=== PATIENT | male | born 1970 | race Two or more races ===

== ENCOUNTER 2020-06-19 10:49 | Inpatient (IN) | payer OTHER ==
[~2020-06-19] VITALS: Ht 121.9 cm; Wt 5.0 kg
--- NOTE | 2020-06-19 10:57 | NUR ---
SE RECIBE PACIENTE MASCULINO DE 50 ANOS [address] EDAD CON QUEJA PRINCIPAL DE HEMOGLOBINA BAJA. REFIERE HABERSE HECHO UNOS LABORATORIOS HOY Y QUE SALIO CON RESULTADO DE HEMOGLOBINA EN 5.7. SE LE GET SIGNOS VITALES Y SE UBICA EN AREA INDICADA.
[2020-06-19] MEDS ORDERED: CLARITHROMYCIN500 M1 (11:01)
[2020-06-19] MEDS ORDERED: AMOX1TAB5 (11:01)
[2020-06-19] MEDS ORDERED: DUTOPROL 25-121 EACH (11:02)
--- NOTE | 2020-06-19 11:23 | NUR ---
SE PRENSENTA PACIENTE A DRA. CEBALLOS.
--- NOTE | 2020-06-19 12:45 | NUR ---
PACIENTE ALERTA Y ORIENTADO EN LUANN CHLOE ESFERAS, ES ORIENTADO SOBRE ORDENES MEDICAS, REFIERE ENTENDER. SE COLECTAN MUESTRAS DE CHON, SE CANALIZA VENA Y SE ADMINISTRA MINDY ORDENADO. SE REQUISAN 3 UNIDADES DE PRBC EN HOLD.
--- NOTE | 2020-06-19 13:20 | NUR ---
SE REQUISAN 3 UNIDADES DE PRBC PARA TRANSFUNDIR EN BANCO DE CHON DE APCH.
== END 2020-06-22 17:42 | disposition home or self-care (01) | DRG 811 ==
LOC: ER 10:49 → SEC-K 18:18 → MEDJ 18:18
PROVIDERS: ADMIT Internal Medicine; ATTEND Internal Medicine
PROC: 30233N1 Transfusion of Nonautologous Red Blood Cells into Peripheral Vein, Percutaneous Approach (ICD-10-PCS; principal; 2020-06-19)
PROC: BW21ZZZ Computerized Tomography (CT Scan) of Abdomen and Pelvis (ICD-10-PCS; 2020-06-19)
PROC: BV44ZZZ Ultrasonography of Scrotum (ICD-10-PCS; 2020-06-19)
DX: D50.0 Iron deficiency anemia secondary to blood loss (chronic) (principal); K25.4 Chronic or unspecified gastric ulcer with hemorrhage; Z20.828 Contact with and (suspected) exposure to other viral communicable diseases; N50.3 Cyst of epididymis

== ENCOUNTER 2021-09-13 11:01 | Outpatient (CLI) | payer OTHER ==
[~2021-09-13 11:01] MED LIST: AMOX1TAB5; CLARITHROMYCIN500 M1; DUTOPROL 25-121 EACH
== END 2021-09-13 11:31 | disposition home or self-care (01) ==
LOC: MRI 11:01
PROVIDERS: ATTEND Urology
DX: D17.6 Benign lipomatous neoplasm of spermatic cord (principal); Z30.09 Encounter for other general counseling and advice on contraception
CPT/HCPCS: 72197

== ENCOUNTER 2022-01-18 06:16 | Day surgery (SDC) | payer OTHER ==
[~2022-01-18] VITALS: Ht 172.7 cm; Wt 85.7 kg
[~2022-01-18 06:16] MED LIST changes: +PRILOSEC OTC20 MG PO
== END 2022-01-18 12:20 | disposition home or self-care (01) ==
LOC: CIR.AMB 06:16
PROVIDERS: ATTEND Urology
DX: L72.0 Epidermal cyst (principal); Z20.822 Contact with and (suspected) exposure to COVID-19; R31.29 Other microscopic hematuria; Z91.013 Allergy to seafood